=== PATIENT | male | born 1995 | race Asian ===

== ENCOUNTER 2019-12-24 19:02 | Emergency (ER) | payer SELFPAY ==
[~2019-12-24] VITALS: Ht 177.8 cm; Wt 81.6 kg
--- NOTE | 2019-12-24 19:05 | NUR ---
ED Nurse Note: Patient CINDY [id number] for substance abuse. pt states he did "acid". Per EMS, patient was seen running on the street. Pt is altered than usual and is non verbal at this time.
[2019-12-24 19:06] VITALS: BP 144/86
[2019-12-24] MEDS ORDERED: LORazepam 1mg tab ORAL ONE (19:15)
--- NOTE | 2019-12-24 19:21 | NUR ---
ED Nurse Note: PT became verbal and more alert.
--- NOTE | 2019-12-24 19:27 | Emergency Room Report ---
History of Present Illness General Chief Complaint: Substance Abuse Present Illness HPI Disclaimer: Please note that this report is being documented using [employer] technology. This can lead to erroneous entry secondary to incorrect interpretation by the dictating instrument. HPI: 24-year-old male presented for intoxication. Patient reports taking 3 doses of LSD. He was found running in the street. Police contacted and patient arrived with police and paramedics. Once in a bed patient denied any medical complaints just feeling mildly anxious. He denies any medical history. States he ingested the LSD approximately 2 hours prior to arrival. PMH: Patient denies any past medical history PSH: Reviewed Social Hx: Denies smoking occasional drinking occasionally uses psychedelic drugs Allergies: Coded Allergies: UNABLE TO ASSESS (Unverified , 12/24/19) COVID-19 Screening Contact w/high risk pt: No Recent Travel to affected area: No Experienced COVID-19 symptoms?: No Nursing Documentation-PMH Past Medical History: Deferred Review of Systems All Other Systems: negative except mentioned in HPI Physical Exam Vital Signs Date Time Temp Pulse Resp B/P (MAP) Pulse Ox O2 Delivery O2 Flow Rate FiO2 12/24/19 18:57 98.6 138 18 149/81 (103) 99 Room Air Sp02 EP Interpretation: reviewed, normal General Appearance: well appearing, no apparent distress Head: normocephalic, atraumatic Eyes: bilateral eye PERRL, bilateral eye EOMI ENT: hearing grossly normal, moist mucus membranes Neck: full range of motion, supple Respiratory: lungs clear, normal breath sounds, no rhonchi, no respiratory distress, no retraction, no wheezing Cardiovascular #1: normal peripheral pulses, no murmur, tachycardia Gastrointestinal: non tender, soft, non-distended, no guarding Neurologic: alert, oriented x3, no focal defects Psychiatric: no suicidal/homicidal ideation Skin: normal color, warm/dry Medical Decision Making Diagnostic Impression: Primary Impression: LSD overdose ER Course MDM: Patient presented with altered mental status after taking LSD. I do suspect a mild LSD overdose. Once in her room patient was calm. Feeling mildly anxious. Patient given 2 mg of oral Ativan and will be observed. Patient currently lives with mother. Low suspicion for infectious process at this time. Clinical course-patient placed on a gurney and given Ativan. Until clinically improved On reevaluation: Patient clinically improved, alert, oriented, no acute distress , requesting to be discharged. Patient was planning to walk home in patient was stable for discharge. No signs of intoxication, anxiety resolved. Plan-patient discharged to self-care. Patient instructed to avoid further illicit drug use. Last Vital Signs Date Time Temp Pulse Resp B/P (MAP) Pulse Ox O2 Delivery O2 Flow Rate FiO2 12/24/19 19:06 135 20 Room Air 12/24/19 19:06 98.6 144/86 99 Status: improved Disposition: HOME, SELF-CARE Condition: Improved Ryan Thibodeaux M.D. December 24, 2019 19:27
[2019-12-24 20:09] VITALS: BP 138/80
--- NOTE | 2019-12-24 20:09 | NUR ---
ER DISCHARGE NOTE: Patient is cleared to be discharged per ERMD, pt is aox4, on room air, with stable vital signs. pt was given dc and prescription instructions, pt was able to verbalize understanding, pt id band removed without complications. pt is able to ambulate with steady gait. pt took all belongings.
== END 2019-12-24 20:09 | disposition home or self-care (01) ==
LOC: EDBD 19:02 → EMR 20:03
DX: T40.8X1A Poisoning by lysergide [LSD], accidental (unintentional), initial encounter (principal); Y92.9 Unspecified place or not applicable; R00.0 Tachycardia, unspecified
CPT/HCPCS: 99283